=== PATIENT | male | born 1950 | race African-American/Black ===

== ENCOUNTER 2018-03-13 20:04 | Inpatient (IN) | payer MEDICARE, OTHER ==
[~2018-03-13] VITALS: Ht 167.6 cm; Wt 68.9 kg
[~2018-03-13 20:04] MED LIST: ALBUTEROL SULF8.5 GM INH; AZITHROMYCIN250 MG PO
[2018-03-13 20:11] VITALS: BP 152/69
--- NOTE | 2018-03-13 20:27 | Emergency Room Report ---
History of Present Illness General Chief Complaint: Male Urogenital Problems Source: Patient (Erick Mitchell DO) Present Illness HPI Patient presents with reports of blood in his urine Patient reports that he woke up this afternoon after using the restroom he saw bright red blood also small amounts of clots with urination and now he has not been able to urinate over the past 4-5 hours he feels a pressure to urinate Denies any problem with this before denies any recent trauma denies any fevers or chills denies any chest pain or shortness of breath He was started to have some increased fullness sensation in the bladder area (Erick Mitchell DO) Allergies: Coded Allergies: No Known Allergies (Unverified , 03/13/18) Patient History Past Medical History: see triage record Pertinent Family History: none Reviewed Nursing Documentation: PMH: Agreed; PSxH: Agreed (MelvaeddieErick BROWNING) Nursing Documentation-PMH Past Medical History: No Stated History (Erick Mitchell DO) Review of Systems All Other Systems: negative except mentioned in HPI (MelvaErick watts DO) Physical Exam Vital Signs Date Time Temp Pulse Resp B/P (MAP) Pulse Ox O2 Delivery O2 Flow Rate FiO2 03/13/18 20:06 98.4 72 14 152/69 99 Room Air 98.4 Sp02 EP Interpretation: reviewed, normal General Appearance: well appearing, no apparent distress Head: normocephalic, atraumatic Eyes: bilateral eye PERRL, bilateral eye EOMI ENT: hearing grossly normal, normal pharynx, TMs + canals normal, uvula midline Neck: full range of motion, supple, no meningismus, no bony tend Respiratory: lungs clear, normal breath sounds, no rhonchi, no respiratory distress, no retraction, no accessory muscle use Cardiovascular #1: normal peripheral pulses, regular rate, rhythm, no edema, no gallop, no JVD, no murmur Gastrointestinal: normal bowel sounds, non tender, soft, no mass, no organomegaly, non-distended, no guarding, no hernia, no pulsatile mass, no rebound Genitourinary: no CVA tenderness Musculoskeletal: normal inspection Neurologic: oriented x3, responsive, instrument maker III-XII nml as tested, motor strength/ tone normal, sensory intact Psychiatric: mood/affect normal Skin: normal color, no rash, warm/dry, palpation normal Lymphatic: normal inspection, no adenopathy (Erick Mitchell DO) Medical Decision Making Diagnostic Impression: Primary Impression: Gross hematuria Additional Impressions: Urinary retention Lesion of right sycuan ureter Hydronephrosis of right kidney UTI (urinary tract infection) Qualified Codes: N30.01 - Acute cystitis with hematuria ER Course This patient was signed out to me. He presents with chief complaint of urinary retention and gross hematuria. A 3-way Neal was placed. Initially there was a hard time irrigating it. Small clot came out and I readjusted the Neal and now is flowing fine. No gross blood. CT scan show a lesion with hemorrhage in the right distal ureter. This has severe right [place] ureteral nephrosis. We' ll admit for further workup. I contacted Dr. Lerma and Breann for admission. Lab Results Impression labs unremarkable (LUKASZ VARELA M.D.) CT/MRI/US Diagnostic Results CT/MRI/US Diagnostic Results : Imaging Test Ordered: CT abdomen and pelvis Impression Read by radiologist. Lesion plus/minus hemorrhage in the right distal ureter with severe hydronephrosis. Superimposed infection should be assessed and probable clinical setting. (LUKASZ VARELA M.D.) Last Vital Signs Date Time Temp Pulse Resp B/P (MAP) Pulse Ox O2 Delivery O2 Flow Rate FiO2 03/13/18 20:11 98.4 14 152/69 99 Room Air 98.4 03/13/18 20:06 72 (Erick Mitchell DO) Status: improved (LUKASZ VARELA M.D.) Disposition: ADMITTED INPATIENT Condition: Serious Scripts No Active Prescriptions or Reported Meds Erick Mitchell DO Mar 13, 2018 20:27 LUKASZ VARELA M.D. Mar 13, 2018 22:12
[2018-03-13 20:55] LABS: BASOPHILS % (AUTO) 0.7 % (0.0-2.0); EOSINOPHILS % (AUTO) 1.6 % (0.0-3.0); HEMATOCRIT 42.9 % (42.0-52.0); HEMOGLOBIN 14.6 G/DL (14.2-18.0); LYMPHOCYTES % (AUTO) 30.4 % (20.0-45.0); MEAN CORPUSCULAR VOLUME 85 FL (80-99); MONOCYTES % (AUTO) 2.1 % (1.0-10.0); NEUTROPHILS % (AUTO) 65.2 % (45.0-75.0); PLATELET COUNT 193 K/UL (150-450); RED BLOOD COUNT 5.05 M/UL (4.70-6.10); RED CELL DISTRIBUTION WIDTH 11.6 % (11.6-14.8); WHITE BLOOD COUNT 4.5 K/UL (4.8-10.8)
[2018-03-13 21:26] LABS: ANION GAP 7 mmol/L (5-15); BLOOD UREA NITROGEN 10 mg/dL (7-18); CALCIUM 9.5 MG/DL (8.5-10.1); CARBON DIOXIDE 29 MMOL/L (21-32); CHLORIDE 105 MMOL/L (98-107); CREATININE 1.3 MG/DL (0.55-1.30); POTASSIUM 4.3 MMOL/L (3.5-5.1); SODIUM 141 MMOL/L (136-145)
[2018-03-13 21:31] LABS: ALANINE AMINOTRANSFERASE 19 U/L (12-78); ALBUMIN 3.4 G/DL (3.4-5.0); ALBUMIN/GLOBULIN RATIO 0.8 (1.0-2.7); ALKALINE PHOSPHATASE 97 U/L (46-116); ASPARTATE AMINO TRANSFERASE 13 U/L (15-37); BILIRUBIN,TOTAL 0.3 MG/DL (0.2-1.0)
[2018-03-13] MEDS ORDERED: Albuterol/Ipratropium 3ml neb HHN PRN (22:15)
[2018-03-13] MEDS ORDERED: Miralax 17gm pkt ORAL PRN (22:15)
[2018-03-13] MEDS ORDERED: cefTRIAXone 1 GM in NS 55 ML IVPB ONE (22:15)
[2018-03-13] MEDS ORDERED: Morphine Sulfate 2mg/ml Inj IVP PRN (22:15)
[2018-03-13 22:30] LABS: APPEARANCE,URINE CLEAR; BILIRUBIN, URINE NEGATIVE (NEGATIVE); COLOR,URINE PALE YELLOW; GLUCOSE, URINE (UA) NEGATIVE (NEGATIVE); KETONES,URINE NEGATIVE (NEGATIVE); LEUKOCYTE ESTERASE ,URINE 3+ (NEGATIVE); NITRITE,URINE POSITIVE (NEGATIVE); PH,URINE 7 (4.5-8.0); PROTEIN,URINE NEGATIVE (NEGATIVE); UROBILINOGEN,URINE NORMAL MG/DL (0.0-1.0)
[2018-03-14] VITALS: BP 145/69
[2018-03-14] MEDS ORDERED: Vancomycin 1 GM in D5W 275 ML IVPB SCH (00:30)
[2018-03-14 04:00] VITALS: BP 127/60
[2018-03-14 06:45] LABS: HEMATOCRIT 41.9 % (42.0-52.0); MEAN CORPUSCULAR VOLUME 85 FL (80-99); PLATELET COUNT 166 K/UL (150-450); RED CELL DISTRIBUTION WIDTH 11.2 % (11.6-14.8); WHITE BLOOD COUNT 12.2 K/UL (4.8-10.8)
[2018-03-14 07:01] LABS: ALANINE AMINOTRANSFERASE 17 U/L (12-78); ALBUMIN 2.9 G/DL (3.4-5.0); ALBUMIN/GLOBULIN RATIO 0.7 (1.0-2.7); ALKALINE PHOSPHATASE 78 U/L (46-116); ANION GAP 9 mmol/L (5-15); ASPARTATE AMINO TRANSFERASE 15 U/L (15-37); BILIRUBIN,TOTAL 0.5 MG/DL (0.2-1.0); BLOOD UREA NITROGEN 10 mg/dL (7-18); CALCIUM 8.5 MG/DL (8.5-10.1); CARBON DIOXIDE 25 MMOL/L (21-32); CHLORIDE 106 MMOL/L (98-107); CREATININE 1.3 MG/DL (0.55-1.30); POTASSIUM 3.8 MMOL/L (3.5-5.1); SODIUM 140 MMOL/L (136-145)
--- NOTE | 2018-03-14 07:38 | General Progress Note ---
Progress Note Progress Note patient seen and examined full consult dictated Cindy Jules MD Mar 14, 2018 07:38
[2018-03-14 08:00] VITALS: BP 125/63
--- NOTE | 2018-03-14 09:44 | Diagnostic Imaging Report ---
Indication: Hematuria. Technique: Noncontrast CT of the abdomen and pelvis utilizing automated exposure control. Axial, sagittal and coronal reformats presented. CT dose: Total DLP 522.17 mGycm; CTDI vol 10.99 mGy Comparison: None Findings: Please note that evaluation of the abdominal and pelvic viscera and vascular structures is limited without the use of intravenous and oral contrast. Within these limitations the following observations are made: Dependent atelectasis noted in the lung bases. Heart size appears within normal limits. Noncontrast evaluation of the liver, gallbladder, spleen, adrenal glands and pancreas grossly unremarkable. There is severe right-sided hydronephrosis and moderate dilatation of the right ureter. There is focal increased dilatation with high attenuation components in the distal right ureter with the ureter measuring up to 1.5 x 1.5 cm (axial images #100). There is a punctate nonobstructing left renal calculus. No hydroureteronephrosis on the left. Prostate is enlarged and heterogeneous and contains central calcifications. 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 There is no free intraperitoneal air or fluid. No evidence of bowel obstruction. Abdominal aorta is normal in caliber. There are mild atherosclerotic calcifications. Some small retroperitoneal lymph nodes are identified, nonspecific. There are degenerative changes of the bilateral hips and spine. No acute osseous abnormality is appreciated. IMPRESSION: Limited exam without intravenous and oral contrast. Within these limitations: * Lesion/focal thickening in the right distal ureter with associated high attenuation components which may represent hemorrhagic products with resultant severe right-sided hydronephrosis and moderate right-sided ureteral dilatation. A ureteral malignancy cannot be excluded. Superimposed infection can also not be excluded. Correlation with urinalysis and urine cytology recommended. Urology consult recommended. * Punctate nonobstructing left renal stone. No evidence of obstructive uropathy on the left. * Large heterogeneous prostate. Dilatation of a segment of the prostatic urethra. This corresponds with the statrad preliminary report. The CT scanner at [facility] is accredited by the [employer] and the scans are performed using protocols designed to limit radiation exposure to as low as reasonably achievable to attain images of sufficient resolution adequate for diagnostic evaluation.
[2018-03-14] MEDS: Cefepime HCl 2 GM in D5W 110 ML IV SCH ×2 (09:49→21:21)
[2018-03-14] MEDS ORDERED: Tubing IV Secondary IV ONE (10:14)
[2018-03-14] MEDS ORDERED: NS 500ML ONE (10:14)
[2018-03-14 12:00] VITALS: BP 113/93
--- NOTE | 2018-03-14 12:15 | Consultation ---
DATE OF CONSULTATION: 03/14/2018 NEPHROLOGY CONSULTATION CONSULTING PHYSICIAN: Cindy Jules M.D. REFERRING PHYSICIAN: Mich Lerma D.O. REASON FOR CONSULTATION: Hematuria. HISTORY OF PRESENT ILLNESS: The patient is a pleasant male with basically no significant past medical history. He presented to the emergency room after he found to have blood in his urine and amount of the blood increased to the point that the patient had difficulty urinating, had some blood clots. He came to emergency room, a three-way Neal catheter was placed and the patient was placed on continuous bladder wash. While the patient was in the hospital, I was called for hematuria and management of he electrolytes and kidney function. PAST MEDICAL HISTORY: None. SOCIAL HISTORY: He has a long history of smoking, he continued to smoke. There is no history of alcohol or drug use. FAMILY HISTORY: Negative for any history of premature heart disease in the first-degree relatives. REVIEW OF SYSTEMS: GENERAL: He denies any weight loss, weight gain, fevers, chills, or night sweats. HEAD AND NECK: He denies any dysphagia, odynophagia, blurry vision, headache, or neck stiffness. PULMONARY: Denies any shortness of breath, cough, or sputum. CARDIOVASCULAR: Denies any chest pain or palpitations. GASTROINTESTINAL: Denies any nausea, vomiting, diarrhea, hematemesis, or hematochezia. GENITOURINARY: Complained of dysuria, frequency, and hematuria. MUSCULOSKELETAL: Denies any weakness or numbness. PHYSICAL EXAMINATION: VITAL SIGNS: The patient has a temperature of 98, blood pressure is 127/60 although the patient has some elevated blood pressure in the ER 152/69, also the patient now has a temperature of 99.7. HEAD AND NECK: No JVP. No LAD. No thyromegaly. Extraocular movement intact. Pupils are reactive to light and accommodation. LUNGS: Clear to auscultation. CARDIAC: Regular rate and rhythm. S1 and S2. No murmur. No rub. ABDOMEN: Soft, nontender, and nondistended. EXTREMITIES: No edema. No clubbing. No cyanosis. NEUROLOGIC: Cranial nerves II through XII within normal limits. Upper and lower extremities are grossly intact. LABORATORY AND DIAGNOSTIC DATA: The patient has WBC count of 12.2, hemoglobin of 14, hematocrit of 41, and platelet count of 166. Chemistry revealed sodium of 140, potassium 3.8, chloride 106, bicarbonate 25, BUN of 10, creatinine of 1.3, and calcium 8.5. AST of 15, ALT of 17. Total protein of 6.8. Urine revealed specific gravity of 1.005, blood 5+, nitrite positive, leukocyte esterase 3+, rbc 5 to 10, wbc of 2 to 4. The patient had CT of the abdomen, which revealed right distal ureteral severe hydronephrosis. ASSESSMENT: 1. Hematuria. 2. Urinary tract infection. 3. Right-sided hydronephrosis. PLAN: Plan for the patient to check the urine protein creatinine ratio to calculate the proteinuria. IV hydration. Continue with three-way Neal bladder irrigation and IV antibiotics for urinary tract infection. At the end, I would like to thank, Dr. Mich Lerma, for allowing me to participate in the care of this patient. Cindy Jules M.D. DR: RUBY JOB#: [id number] CC:
--- NOTE | 2018-03-14 14:37 | Consultation ---
History of Present Illness General Date patient seen: Mar 14, 2018 Chief Complaint: Male Urogenital Problems Present Illness HPI 67 year old male with hx of asthma presented to ER with reports of blood in his urine Patient reports that he woke up this afternoon after using the restroom he saw bright red blood also small amounts of clots with urination and now he has not been able to urinate over the past 4-5 hours he feels a pressure to urinate No fever, chills reported. Allergies: Coded Allergies: No Known Allergies (Unverified , 09/20/12) Medication History Scheduled Albuterol Sulfate* (Albuterol Sulfate Mdi*), 2 PUFF INH Q4H Azithromycin* (Zithromax*), 250 MG PO DAILY Patient History Healthcare decision maker Resuscitation status Full Code Advanced Directive on File Past Medical/Surgical History Past Medical/Surgical History: (1) History of asthma Review of Systems All Other Systems: negative except mentioned in HPI Physical Exam General Appearance: WD/WN, no apparent distress Lines, tubes and drains: peripheral HEENT: normocephalic, atraumatic Neck: non-tender, normal alignment Respiratory/Chest: chest wall non-tender, lungs clear Breasts: no masses Cardiovascular/Chest: normal peripheral pulses Abdomen: normal bowel sounds, non tender Genitourinary/Rectal: normal genital exam Extremities: normal range of motion, non-tender Skin Exam: normal pigmentation Neurologic: medical practitioners II-XII grossly normal Last 24 Hour Vital Signs Date Time Temp Pulse Resp B/P (MAP) Pulse Ox O2 Delivery O2 Flow Rate FiO2 03/14/18 12:00 96.7 94 19 113/93 (100) 97 96.7 03/14/18 09:35 Room Air 03/14/18 08:00 98.8 95 20 125/63 (83) 98.8 03/14/18 08:00 98 03/14/18 04:00 99.7 96 19 127/60 (82) 97 99.7 03/14/18 00:00 97.9 84 19 145/69 (94) 100 97.9 03/13/18 23:38 Room Air 03/13/18 23:01 98.4 14 137/72 99 Room Air 98.4 03/13/18 20:11 98.4 14 152/69 99 Room Air 98.4 03/13/18 20:06 98.4 72 14 152/69 99 Room Air 98.4 Intake and Output 03/13/18 03/14/18 19:00 07:00 Intake Total 275.0 ml Output Total 5660 ml Balance -5385.0 ml Intake Oral 0 ml IV Total 275.0 ml Output Urine Total 5660 ml Laboratory Tests Test 03/13/18 20:22 03/13/18 22:00 03/14/18 05:25 White Blood Count 4.5 K/UL (4.8-10.8) L 12.2 K/UL (4.8-10.8) #H Red Blood Count 5.05 M/UL (4.70-6.10) 4.90 M/UL (4.70-6.10) Hemoglobin 14.6 G/DL (14.2-18.0) 14.0 G/DL (14.2-18.0) L Hematocrit 42.9 % (42.0-52.0) 41.9 % (42.0-52.0) L Mean Corpuscular Volume 85 FL (80-99) 85 FL (80-99) Mean Corpuscular Hemoglobin 28.8 PG (27.0-31.0) 28.5 PG (27.0-31.0) Mean Corpuscular Hemoglobin Concent 34.0 G/DL (32.0-36.0) 33.4 G/DL (32.0-36.0) Red Cell Distribution Width 11.6 % (11.6-14.8) 11.2 % (11.6-14.8) L Platelet Count 193 K/UL (150-450) 166 K/UL (150-450) Mean Platelet Volume 6.4 FL (6.5-10.1) L 6.8 FL (6.5-10.1) Neutrophils (%) (Auto) 65.2 % (45.0-75.0) % (45.0-75.0) Lymphocytes (%) (Auto) 30.4 % (20.0-45.0) % (20.0-45.0) Monocytes (%) (Auto) 2.1 % (1.0-10.0) % (1.0-10.0) Eosinophils (%) (Auto) 1.6 % (0.0-3.0) % (0.0-3.0) Basophils (%) (Auto) 0.7 % (0.0-2.0) % (0.0-2.0) Sodium Level 141 MMOL/L (136-145) 140 MMOL/L (136-145) Potassium Level 4.3 MMOL/L (3.5-5.1) 3.8 MMOL/L (3.5-5.1) Chloride Level 105 MMOL/L (98-107) 106 MMOL/L (98-107) Carbon Dioxide Level 29 MMOL/L (21-32) 25 MMOL/L (21-32) Anion Gap 7 mmol/L (5-15) 9 mmol/L (5-15) Blood Urea Nitrogen 10 mg/dL (7-18) 10 mg/dL (7-18) Creatinine 1.3 MG/DL (0.55-1.30) 1.3 MG/DL (0.55-1.30) Estimat Glomerular Filtration Rate > 60 mL/min (>60) > 60 mL/min (>60) Glucose Level 103 MG/DL (74-106) 114 MG/DL (74-106) H Calcium Level 9.5 MG/DL (8.5-10.1) 8.5 MG/DL (8.5-10.1) Total Bilirubin 0.3 MG/DL (0.2-1.0) 0.5 MG/DL (0.2-1.0) Aspartate Amino Transf (AST/SGOT) 13 U/L (15-37) L 15 U/L (15-37) Alanine Aminotransferase (ALT/SGPT) 19 U/L (12-78) 17 U/L (12-78) Alkaline Phosphatase 97 U/L (46-116) 78 U/L (46-116) Total Protein 7.8 G/DL (6.4-8.2) 6.8 G/DL (6.4-8.2) Albumin 3.4 G/DL (3.4-5.0) 2.9 G/DL (3.4-5.0) L Globulin 4.4 g/dL 3.9 g/dL Albumin/Globulin Ratio 0.8 (1.0-2.7) L 0.7 (1.0-2.7) L Lipase 166 U/L (73-393) Urine Color Pale yellow Urine Appearance Clear Urine pH 7 (4.5-8.0) Urine Specific [place] 1.005 (1.005-1.035) Urine Protein Negative (NEGATIVE) Urine Glucose (UA) Negative (NEGATIVE) Urine Ketones Negative (NEGATIVE) Urine Occult Blood 5+ (NEGATIVE) H Urine Nitrite Positive (NEGATIVE) H Urine Bilirubin Negative (NEGATIVE) Urine Urobilinogen Normal MG/DL (0.0-1.0) Urine Leukocyte Esterase 3+ (NEGATIVE) H Urine RBC 5-10 /HPF (0 - 0) H Urine WBC 2-4 /HPF (0 - 0) Urine Squamous Epithelial Cells None /LPF (NONE/OCC) Urine Bacteria Few /HPF (NONE) Differential Total Cells Counted 100 Neutrophils % (Manual) 97 % (45-75) H Lymphocytes % (Manual) 1 % (20-45) L Monocytes % (Manual) 2 % (1-10) Eosinophils % (Manual) 0 % (0-3) Basophils % (Manual) 0 % (0-2) Band Neutrophils 0 % (0-8) Platelet Estimate Adequate Platelet Morphology Normal Red Blood Cell Morphology Normal Height (Feet): 5 Height (Inches): 6.00 Weight (Pounds): 152 Medications Current Medications Medications (Trade) Dose Ordered Sig/Avis Route PRN Reason Start Time Stop Time Status Last Admin Dose Admin Acetaminophen (Tylenol) 650 mg Q4H PRN ORAL fever 03/13/18 22:15 04/12/18 22:14 Albuterol/ Ipratropium (Albuterol/ Ipratropium) 3 ml Q4H PRN HHN Shortness of Breath 03/13/18 22:15 03/18/18 22:14 Cefepime HCl 2 gm/ Dextrose 110 ml @ 220 mls/hr EVERY 12 HOURS IV 03/14/18 09:00 03/21/18 08:59 03/14/18 09:49 Morphine Sulfate (Morphine Sulfate) 2 mg EVERY 4 HOURS PRN IVP Moderate Pain (Pain Scale 4-6) 03/13/18 22:15 03/20/18 22:14 Ondansetron HCl (Zofran) 4 mg Q6H PRN IVP Nausea & Vomiting 03/13/18 22:15 04/12/18 22:14 Phenazopyridine HCl (Pyridium) 100 mg DAILY PRN ORAL dysuria 03/13/18 22:15 04/12/18 22:14 Polyethylene Glycol (Miralax) 17 gm DAILYPRN PRN ORAL Constipation 03/13/18 22:15 04/12/18 22:14 Temazepam (Restoril) 15 mg HSPRN PRN ORAL Insomnia 03/13/18 22:15 03/20/18 22:14 Vancomycin HCl 1 gm/Dextrose 275 ml @ 183.3 mls/ hr Q24H IVPB 03/14/18 00:30 03/19/18 00:29 03/14/18 00:38 Assessment/Plan Problem List: (1) Gross hematuria ICD Codes: R31.0 - Gross hematuria SNOMED: 953622379 (2) UTI (urinary tract infection) ICD Codes: N39.0 - Urinary tract infection, site not specified SNOMED: 29387662 Qualifiers: (3) History of asthma ICD Codes: Z87.09 - Personal history of other diseases of the respiratory system SNOMED: 069201555 Assessment/Plan iv fluids Urology evaluation check H/H prbc prn dvt prophylaxis. Matilde Crain MD Mar 14, 2018 14:37
[2018-03-14 16:00] VITALS: BP 115/70
--- NOTE | 2018-03-14 19:45 | Consultation ---
History of Present Illness General Date patient seen: Mar 14, 2018 Chief Complaint: Male Urogenital Problems Present Illness HPI 67 y/o M with hx of tobacco abuse presents to ED on 03/13 with gross hematuria/ clots, urinary difficulty. In ED, benson placed Dnies trauma, f/c, CP, SOB. Allergies: Coded Allergies: No Known Allergies (Unverified , 09/20/12) Medication History Scheduled Albuterol Sulfate* (Albuterol Sulfate Mdi*), 2 PUFF INH Q4H Azithromycin* (Zithromax*), 250 MG PO DAILY Patient History Healthcare decision maker Resuscitation status Full Code Advanced Directive on File Patient History Narrative Pmhx: as above Shx: He has a long history of smoking, he continued to smoke. There is no history of alcohol or drug use. Fhx: non contributory Review of Systems All Other Systems: negative except mentioned in HPI Physical Exam Physical Exam Narrative HEAD AND NECK: No JVP. No LAD. No thyromegaly. Extraocular movement intact. Pupils are reactive to light and accommodation. LUNGS: Clear to auscultation. CARDIAC: Regular rate and rhythm. S1 and S2. No murmur. No rub. ABDOMEN: Soft, nontender, and nondistended. EXTREMITIES: No edema. No clubbing. No cyanosis. NEUROLOGIC: Cranial nerves II through XII within normal limits. Upper and lower extremities are grossly intact. Last 24 Hour Vital Signs Date Time Temp Pulse Resp B/P (MAP) Pulse Ox O2 Delivery O2 Flow Rate FiO2 03/14/18 17:06 98 Room Air 21 03/14/18 17:04 84 20 Room Air 21 03/14/18 16:00 97.0 90 20 115/70 (85) 98 97.0 03/14/18 12:00 96.7 94 19 113/93 (100) 97 96.7 03/14/18 09:35 Room Air 03/14/18 08:00 98.8 95 20 125/63 (83) 98.8 03/14/18 08:00 98 03/14/18 04:00 99.7 96 19 127/60 (82) 97 99.7 03/14/18 00:00 97.9 84 19 145/69 (94) 100 97.9 03/13/18 23:38 Room Air 03/13/18 23:01 98.4 14 137/72 99 Room Air 98.4 03/13/18 20:11 98.4 14 152/69 99 Room Air 98.4 03/13/18 20:06 98.4 72 14 152/69 99 Room Air 98.4 Intake and Output 03/13/18 03/14/18 19:00 07:00 Intake Total 275.0 ml Output Total 5660 ml Balance -5385.0 ml Intake Oral 0 ml IV Total 275.0 ml Output Urine Total 5660 ml Laboratory Tests Test 03/13/18 20:22 03/13/18 22:00 03/14/18 05:25 White Blood Count 4.5 K/UL (4.8-10.8) L 12.2 K/UL (4.8-10.8) #H Red Blood Count 5.05 M/UL (4.70-6.10) 4.90 M/UL (4.70-6.10) Hemoglobin 14.6 G/DL (14.2-18.0) 14.0 G/DL (14.2-18.0) L Hematocrit 42.9 % (42.0-52.0) 41.9 % (42.0-52.0) L Mean Corpuscular Volume 85 FL (80-99) 85 FL (80-99) Mean Corpuscular Hemoglobin 28.8 PG (27.0-31.0) 28.5 PG (27.0-31.0) Mean Corpuscular Hemoglobin Concent 34.0 G/DL (32.0-36.0) 33.4 G/DL (32.0-36.0) Red Cell Distribution Width 11.6 % (11.6-14.8) 11.2 % (11.6-14.8) L Platelet Count 193 K/UL (150-450) 166 K/UL (150-450) Mean Platelet Volume 6.4 FL (6.5-10.1) L 6.8 FL (6.5-10.1) Neutrophils (%) (Auto) 65.2 % (45.0-75.0) % (45.0-75.0) Lymphocytes (%) (Auto) 30.4 % (20.0-45.0) % (20.0-45.0) Monocytes (%) (Auto) 2.1 % (1.0-10.0) % (1.0-10.0) Eosinophils (%) (Auto) 1.6 % (0.0-3.0) % (0.0-3.0) Basophils (%) (Auto) 0.7 % (0.0-2.0) % (0.0-2.0) Sodium Level 141 MMOL/L (136-145) 140 MMOL/L (136-145) Potassium Level 4.3 MMOL/L (3.5-5.1) 3.8 MMOL/L (3.5-5.1) Chloride Level 105 MMOL/L (98-107) 106 MMOL/L (98-107) Carbon Dioxide Level 29 MMOL/L (21-32) 25 MMOL/L (21-32) Anion Gap 7 mmol/L (5-15) 9 mmol/L (5-15) Blood Urea Nitrogen 10 mg/dL (7-18) 10 mg/dL (7-18) Creatinine 1.3 MG/DL (0.55-1.30) 1.3 MG/DL (0.55-1.30) Estimat Glomerular Filtration Rate > 60 mL/min (>60) > 60 mL/min (>60) Glucose Level 103 MG/DL (74-106) 114 MG/DL (74-106) H Calcium Level 9.5 MG/DL (8.5-10.1) 8.5 MG/DL (8.5-10.1) Total Bilirubin 0.3 MG/DL (0.2-1.0) 0.5 MG/DL (0.2-1.0) Aspartate Amino Transf (AST/SGOT) 13 U/L (15-37) L 15 U/L (15-37) Alanine Aminotransferase (ALT/SGPT) 19 U/L (12-78) 17 U/L (12-78) Alkaline Phosphatase 97 U/L (46-116) 78 U/L (46-116) Total Protein 7.8 G/DL (6.4-8.2) 6.8 G/DL (6.4-8.2) Albumin 3.4 G/DL (3.4-5.0) 2.9 G/DL (3.4-5.0) L Globulin 4.4 g/dL 3.9 g/dL Albumin/Globulin Ratio 0.8 (1.0-2.7) L 0.7 (1.0-2.7) L Lipase 166 U/L (73-393) Urine Color Pale yellow Urine Appearance Clear Urine pH 7 (4.5-8.0) Urine Specific [place] 1.005 (1.005-1.035) Urine Protein Negative (NEGATIVE) Urine Glucose (UA) Negative (NEGATIVE) Urine Ketones Negative (NEGATIVE) Urine Occult Blood 5+ (NEGATIVE) H Urine Nitrite Positive (NEGATIVE) H Urine Bilirubin Negative (NEGATIVE) Urine Urobilinogen Normal MG/DL (0.0-1.0) Urine Leukocyte Esterase 3+ (NEGATIVE) H Urine RBC 5-10 /HPF (0 - 0) H Urine WBC 2-4 /HPF (0 - 0) Urine Squamous Epithelial Cells None /LPF (NONE/OCC) Urine Bacteria Few /HPF (NONE) Differential Total Cells Counted 100 Neutrophils % (Manual) 97 % (45-75) H Lymphocytes % (Manual) 1 % (20-45) L Monocytes % (Manual) 2 % (1-10) Eosinophils % (Manual) 0 % (0-3) Basophils % (Manual) 0 % (0-2) Band Neutrophils 0 % (0-8) Platelet Estimate Adequate Platelet Morphology Normal Red Blood Cell Morphology Normal Height (Feet): 5 Height (Inches): 6.00 Weight (Pounds): 152 Medications Current Medications Medications (Trade) Dose Ordered Sig/Avis Route PRN Reason Start Time Stop Time Status Last Admin Dose Admin Acetaminophen (Tylenol) 650 mg Q4H PRN ORAL fever 03/13/18 22:15 04/12/18 22:14 Albuterol/ Ipratropium (Albuterol/ Ipratropium) 3 ml Q4H PRN HHN Shortness of Breath 03/13/18 22:15 03/18/18 22:14 Cefepime HCl 2 gm/ Dextrose 110 ml @ 220 mls/hr EVERY 12 HOURS IV 03/14/18 09:00 03/21/18 08:59 03/14/18 09:49 Morphine Sulfate (Morphine Sulfate) 2 mg EVERY 4 HOURS PRN IVP Moderate Pain (Pain Scale 4-6) 03/13/18 22:15 03/20/18 22:14 Ondansetron HCl (Zofran) 4 mg Q6H PRN IVP Nausea & Vomiting 03/13/18 22:15 04/12/18 22:14 Phenazopyridine HCl (Pyridium) 100 mg DAILY PRN ORAL dysuria 03/13/18 22:15 04/12/18 22:14 Polyethylene Glycol (Miralax) 17 gm DAILYPRN PRN ORAL Constipation 03/13/18 22:15 04/12/18 22:14 Temazepam (Restoril) 15 mg HSPRN PRN ORAL Insomnia 03/13/18 22:15 03/20/18 22:14 Vancomycin HCl (Vanco rx to dose) 1 ea DAILY PRN MISC PER RX PROTOCOL 03/14/18 17:15 04/13/18 17:14 Vancomycin HCl 1 gm/Dextrose 275 ml @ 183.3 mls/ hr Q24H IVPB 03/14/18 00:30 03/19/18 00:29 03/14/18 00:38 Assessment/Plan Assessment/Plan Abx: IV Vanco 03/14- Cefepime 03/14- Ceftriaxone x1 03/13 Assessment: Hematuria Severe R side hydronephrosis/hydroureter- r/o malignancy -r/o UTI -CT abd/p: Limited exam without intravenous and oral contrast. Within these limitations: Lesion/focal thickening in the right distal ureter with associated high attenuation components which may represent hemorrhagic products with resultant severe right-sided hydronephrosis and moderate right-sided ureteral dilatation. A ureteral malignancy cannot be excluded. Superimposed infection can also not be excluded. Correlation with urinalysis and urine cytology recommended. Urology consult recommended.* Punctate nonobstructing left renal stone. No evidence of obstructive uropathy on the left.* Large heterogeneous prostate. Dilatation of a segment of the prostatic urethra. Mild leukocytosis -afebrile -u/a wbc 2-4, nit +, leuk +3 tobacco abuse Plan: -d/c IV Vancomycin -Continue empiric Cefepime penidng urine culture -repeat u/a -urine cytology -Uro consult -f/u cx -Monitor CBC/CMP, temperatures Thank you for this consultation. Will continue to follow along with you. Discussed with Adelina Calixto M.D. Mar 14, 2018 19:45
[2018-03-14 20:00] VITALS: BP 130/62
--- NOTE | 2018-03-14 23:15 | History and Physical Report ---
DATE OF ADMISSION: 03/13/2018 TIME SEEN: At 2:10 p.m. CONSULTANTS: 1. Luis Alberto Ortez M.D. 2. Cindy Jules M.D. 3. Matilde Crain M.D. CHIEF COMPLAINT: Hematuria, hydronephrosis, and urethral hemorrhage. BRIEF HISTORY: This is a 67-year-old male, who lives at home, presents with bloody urine for two days, getting worse, came to [place], diagnosed with hydronephrosis and urethral hemorrhage, and admitted to medical floor for further treatment. Currently calm in bed, feeling little bit better. No complaint otherwise. PAST MEDICAL HISTORY: Nothing. PAST SURGICAL HISTORY: Nothing. MEDICATIONS: Cefepime, vancomycin, albuterol, Tylenol, morphine, , MiraLAX, Zofran, Restoril, . ALLERGIES: Denies. SOCIAL HISTORY: Positive smoking. No alcohol. No intravenous drug abuse. FAMILY HISTORY: Noncontributory. REVIEW OF SYSTEMS: No chest pain. No shortness of breath. No nausea, vomiting, or diarrhea. PHYSICAL EXAMINATION: GENERAL: Calm in bed, oriented x3, no acute distress. VITAL SIGNS: Temperature 96 degrees, pulse 94, respirations 19, and blood pressure 113/93. CARDIOVASCULAR: No murmur. LUNGS: Distant and clear. ABDOMEN: Bowel sound positive. Nontender. Nondistended. EXTREMITIES: No cyanosis, clubbing, or edema. NEUROLOGIC: The patient moves all extremities, slightly weak. LABORATORY AND DIAGNOSTIC DATA: Labs at this time show initial white count 4.5, now 12.2; hemoglobin and hematocrit 14/41, and platelets 166. BMP shows glucose 114. Albumin 2.9, otherwise normal. Urinalysis shows 5+ occult blood, positive nitrites, and 3+ leukocyte esterase. ASSESSMENT: 1. Hematuria. 2. Urinary tract infection. 3. Hydronephrosis. 4. Urethral hemorrhage. PLAN: 1. Continue previous medications. 2. IV fluids. 3. Pain control. 4. Antibiotics per Infectious Disease. 5. Dietary evaluation. 6. CBC and BMP in the morning. 7. Dr. Ortez, Dr. Jules, Dr. Crain, and Dr Celeste to consult. Mich Lerma D.O. DR: CATHY JOB#: [id number] CC:
[2018-03-15] VITALS: BP 135/58
[2018-03-15 04:00] VITALS: BP 129/64
[2018-03-15 06:09] LABS: BILIRUBIN, URINE NEGATIVE (NEGATIVE); COLOR,URINE PALE YELLOW; GLUCOSE, URINE (UA) NEGATIVE (NEGATIVE); KETONES,URINE NEGATIVE (NEGATIVE); LEUKOCYTE ESTERASE ,URINE 3+ (NEGATIVE); NITRITE,URINE NEGATIVE (NEGATIVE); PH,URINE 6 (4.5-8.0); PROTEIN,URINE 1+ (NEGATIVE); UROBILINOGEN,URINE NORMAL MG/DL (0.0-1.0)
[2018-03-15 06:31] LABS: APPEARANCE,URINE SLIGHTLY CLOUDY
[2018-03-15 07:41] LABS: BASOPHILS % (AUTO) 0.8 % (0.0-2.0); EOSINOPHILS % (AUTO) 0.4 % (0.0-3.0); HEMATOCRIT 38.3 % (42.0-52.0); LYMPHOCYTES % (AUTO) 12.4 % (20.0-45.0); MEAN CORPUSCULAR VOLUME 86 FL (80-99); MONOCYTES % (AUTO) 6.6 % (1.0-10.0); NEUTROPHILS % (AUTO) 79.8 % (45.0-75.0); PLATELET COUNT 142 K/UL (150-450); RED BLOOD COUNT 4.46 M/UL (4.70-6.10); RED CELL DISTRIBUTION WIDTH 11.5 % (11.6-14.8); WHITE BLOOD COUNT 8.2 K/UL (4.8-10.8)
--- NOTE | 2018-03-15 07:41 | Nephrology Progress Note ---
Assessment/Plan Assessment 1. Hematuria. 2. Urinary tract infection. 3. Right-sided hydronephrosis Plan plan to continue IVF monitoring renal function avoid NSAID replace electrolyte as need if fallow up with urology rec Subjective Constitutional: Reports: no symptoms HEENT: Reports: no symptoms Genitourinary: Reports: hematuria Neurologic/Psychiatric: Reports: no symptoms Objective Objective Last 24 Hour Vital Signs Date Time Temp Pulse Resp B/P (MAP) Pulse Ox O2 Delivery O2 Flow Rate FiO2 03/15/18 04:00 98.2 70 18 129/64 (85) 97 98.2 03/15/18 00:00 97.7 65 18 135/58 (83) 100 97.7 03/14/18 21:30 Room Air 03/14/18 20:00 97.9 75 19 130/62 (84) 98 97.9 03/14/18 20:00 Room Air 03/14/18 17:06 98 Room Air 21 03/14/18 17:04 84 20 Room Air 21 03/14/18 16:00 97.0 90 20 115/70 (85) 98 97.0 03/14/18 12:00 96.7 94 19 113/93 (100) 97 96.7 03/14/18 09:35 Room Air 03/14/18 08:00 98.8 95 20 125/63 (83) 98.8 03/14/18 08:00 98 Intake and Output 03/14/18 03/15/18 19:00 07:00 Intake Total 1000 ml 420 ml Output Total 1500 ml 710 ml Balance -500 ml -290 ml Intake Oral 1000 ml 420 ml Output Urine Total 1500 ml 710 ml Laboratory Tests 03/15/18 04:00: Urine Color Pale yellow, Urine Appearance Slightly cloudy, Urine pH 6, Urine Specific [place] 1.010, Urine Protein 1+H, Urine Glucose (UA) Negative, Urine Ketones Negative, Urine Occult Blood 4+H, Urine Nitrite Negative, Urine Bilirubin Negative, Urine Urobilinogen Normal, Urine Leukocyte Esterase 3+H, Urine RBC 10-15H, Urine WBC 20-30H, Urine Squamous Epithelial Cells None, Urine Bacteria Few 03/15/18 06:25: White Blood Count [Pending], Red Blood Count [Pending], Hemoglobin [Pending], Hematocrit [Pending], Mean Corpuscular Volume [Pending], Mean Corpuscular Hemoglobin [Pending], Mean Corpuscular Hemoglobin Concent [Pending], Red Cell Distribution Width [Pending], Platelet Count [Pending], Mean Platelet Volume [ Pending], Neutrophils (%) (Auto) [Pending], Lymphocytes (%) (Auto) [Pending], Monocytes (%) (Auto) [Pending], Eosinophils (%) (Auto) [Pending], Basophils (%) (Auto) [Pending], Sodium Level [Pending], Potassium Level [Pending], Chloride Level [Pending], Carbon Dioxide Level [Pending], Blood Urea Nitrogen [Pending], Creatinine [Pending], Estimat Glomerular Filtration Rate [Pending], Glucose Level [Pending], Calcium Level [Pending], Phosphorus Level [Pending], Magnesium Level [Pending], Total Bilirubin [Pending], Aspartate Amino Transf (AST/SGOT) [ Pending], Alanine Aminotransferase (ALT/SGPT) [Pending], Alkaline Phosphatase [ Pending], Total Protein [Pending], Albumin [Pending], Globulin [Pending] Height (Feet): 5 Height (Inches): 6.00 Weight (Pounds): 152 Objective HEAD AND NECK: No JVP. No LAD. No thyromegaly. Extraocular movement intact. Pupils are reactive to light and accommodation. LUNGS: Clear to auscultation. CARDIAC: Regular rate and rhythm. S1 and S2. No murmur. No rub. ABDOMEN: Soft, nontender, and nondistended. EXTREMITIES: No edema. No clubbing. No cyanosis. NEUROLOGIC: Cranial nerves II through XII within normal limits. Upper and lower extremities are grossly intact. Cindy Jules MD Mar 15, 2018 07:41
[2018-03-15 08:00] VITALS: BP 136/55
[2018-03-15 08:05] LABS: ALANINE AMINOTRANSFERASE 18 U/L (12-78); ALBUMIN 2.6 G/DL (3.4-5.0); ALBUMIN/GLOBULIN RATIO 0.6 (1.0-2.7); ALKALINE PHOSPHATASE 68 U/L (46-116); ANION GAP 7 mmol/L (5-15); ASPARTATE AMINO TRANSFERASE 14 U/L (15-37); BILIRUBIN,TOTAL 0.5 MG/DL (0.2-1.0); BLOOD UREA NITROGEN 15 mg/dL (7-18); CALCIUM 8.5 MG/DL (8.5-10.1); CARBON DIOXIDE 28 MMOL/L (21-32); CHLORIDE 105 MMOL/L (98-107); CREATININE 1.4 MG/DL (0.55-1.30); SODIUM 140 MMOL/L (136-145)
[2018-03-15 08:17] LABS: PHOSPHORUS 2.1 MG/DL (2.5-4.9)
[2018-03-15] MEDS: Cefepime HCl 2 GM in D5W 110 ML IV SCH (09:26)
--- NOTE | 2018-03-15 10:21 | Consultation ---
History of Present Illness General Date patient seen: Mar 15, 2018 Time patient seen: 10:17 Chief Complaint: Male Urogenital Problems Referring physician: Florentin Reason for Consultation: right hydro, hematuria Present Illness HPI 67 yo male, smoker, with hematuria x 2. In ED had trouble urinating, 3 way benson placed. Since admission to floor, urine has been very clear. Patient in no pain. This is first episode of hematuria. Otherwise feeling well. Allergies: Coded Allergies: No Known Allergies (Unverified , 09/20/12) Medication History Scheduled Albuterol Sulfate* (Albuterol Sulfate Mdi*), 2 PUFF INH Q4H Azithromycin* (Zithromax*), 250 MG PO DAILY Patient History History Provided By: Patient Healthcare decision maker Resuscitation status Full Code Advanced Directive on File Review of Systems All Other Systems: negative except mentioned in HPI Physical Exam General Appearance: no apparent distress HEENT: atraumatic Neck: non-tender Respiratory/Chest: lungs clear Cardiovascular/Chest: normal rate, regular rhythm Abdomen: non tender, soft Genitourinary/Rectal: normal genital exam Extremities: non-tender Neurologic: alert, oriented x 3 Last 24 Hour Vital Signs Date Time Temp Pulse Resp B/P (MAP) Pulse Ox O2 Delivery O2 Flow Rate FiO2 03/15/18 09:31 Room Air 03/15/18 08:00 97.5 69 20 136/55 (82) 97 97.5 03/15/18 04:00 98.2 70 18 129/64 (85) 97 98.2 03/15/18 00:00 97.7 65 18 135/58 (83) 100 97.7 03/14/18 21:30 Room Air 03/14/18 20:00 97.9 75 19 130/62 (84) 98 97.9 03/14/18 20:00 Room Air 03/14/18 17:06 98 Room Air 21 03/14/18 17:04 84 20 Room Air 21 03/14/18 16:00 97.0 90 20 115/70 (85) 98 97.0 03/14/18 12:00 96.7 94 19 113/93 (100) 97 96.7 Intake and Output 03/14/18 03/15/18 19:00 07:00 Intake Total 1000 ml 420 ml Output Total 1500 ml 710 ml Balance -500 ml -290 ml Intake Oral 1000 ml 420 ml Output Urine Total 1500 ml 710 ml Laboratory Tests Test 03/15/18 04:00 03/15/18 06:25 Urine Color Pale yellow Urine Appearance Slightly cloudy Urine pH 6 (4.5-8.0) Urine Specific [place] 1.010 (1.005-1.035) Urine Protein 1+ (NEGATIVE) H Urine Glucose (UA) Negative (NEGATIVE) Urine Ketones Negative (NEGATIVE) Urine Occult Blood 4+ (NEGATIVE) H Urine Nitrite Negative (NEGATIVE) Urine Bilirubin Negative (NEGATIVE) Urine Urobilinogen Normal MG/DL (0.0-1.0) Urine Leukocyte Esterase 3+ (NEGATIVE) H Urine RBC 10-15 /HPF (0 - 0) H Urine WBC 20-30 /HPF (0 - 0) H Urine Squamous Epithelial Cells None /LPF (NONE/OCC) Urine Bacteria Few /HPF (NONE) White Blood Count 8.2 K/UL (4.8-10.8) Red Blood Count 4.46 M/UL (4.70-6.10) L Hemoglobin 13.0 G/DL (14.2-18.0) L Hematocrit 38.3 % (42.0-52.0) L Mean Corpuscular Volume 86 FL (80-99) Mean Corpuscular Hemoglobin 29.2 PG (27.0-31.0) Mean Corpuscular Hemoglobin Concent 34.0 G/DL (32.0-36.0) Red Cell Distribution Width 11.5 % (11.6-14.8) L Platelet Count 142 K/UL (150-450) L Mean Platelet Volume 7.1 FL (6.5-10.1) Neutrophils (%) (Auto) 79.8 % (45.0-75.0) H Lymphocytes (%) (Auto) 12.4 % (20.0-45.0) L Monocytes (%) (Auto) 6.6 % (1.0-10.0) Eosinophils (%) (Auto) 0.4 % (0.0-3.0) Basophils (%) (Auto) 0.8 % (0.0-2.0) Sodium Level 140 MMOL/L (136-145) Potassium Level 4.0 MMOL/L (3.5-5.1) Chloride Level 105 MMOL/L (98-107) Carbon Dioxide Level 28 MMOL/L (21-32) Anion Gap 7 mmol/L (5-15) Blood Urea Nitrogen 15 mg/dL (7-18) Creatinine 1.4 MG/DL (0.55-1.30) H Estimat Glomerular Filtration Rate > 60 mL/min (>60) Glucose Level 91 MG/DL (74-106) Calcium Level 8.5 MG/DL (8.5-10.1) Phosphorus Level 2.1 MG/DL (2.5-4.9) L Magnesium Level 1.8 MG/DL (1.8-2.4) Total Bilirubin 0.5 MG/DL (0.2-1.0) Aspartate Amino Transf (AST/SGOT) 14 U/L (15-37) L Alanine Aminotransferase (ALT/SGPT) 18 U/L (12-78) Alkaline Phosphatase 68 U/L (46-116) Total Protein 6.6 G/DL (6.4-8.2) Albumin 2.6 G/DL (3.4-5.0) L Globulin 4.0 g/dL Albumin/Globulin Ratio 0.6 (1.0-2.7) L Height (Feet): 5 Height (Inches): 6.00 Weight (Pounds): 152 Medications Current Medications Medications (Trade) Dose Ordered Sig/Avis Route PRN Reason Start Time Stop Time Status Last Admin Dose Admin Acetaminophen (Tylenol) 650 mg Q4H PRN ORAL fever 03/13/18 22:15 04/12/18 22:14 Albuterol/ Ipratropium (Albuterol/ Ipratropium) 3 ml Q4H PRN HHN Shortness of Breath 03/13/18 22:15 03/18/18 22:14 Cefepime HCl 2 gm/ Dextrose 110 ml @ 220 mls/hr DAILY IV 03/16/18 09:00 03/21/18 08:59 Morphine Sulfate (Morphine Sulfate) 2 mg EVERY 4 HOURS PRN IVP Moderate Pain (Pain Scale 4-6) 03/13/18 22:15 03/20/18 22:14 Ondansetron HCl (Zofran) 4 mg Q6H PRN IVP Nausea & Vomiting 03/13/18 22:15 04/12/18 22:14 Phenazopyridine HCl (Pyridium) 100 mg DAILY PRN ORAL dysuria 03/13/18 22:15 04/12/18 22:14 Polyethylene Glycol (Miralax) 17 gm DAILYPRN PRN ORAL Constipation 03/13/18 22:15 04/12/18 22:14 Temazepam (Restoril) 15 mg HSPRN PRN ORAL Insomnia 03/13/18 22:15 03/20/18 22:[address]: right hydro down to distal ureter with high density material within 1 cm stretch of ureter. Assessment/Plan Status: stable Assessment/Plan 67 yo male with hematuria, now resolved, and right hydro. High risk for ureteral tumor. Needs ureteroscopy with biopsy and likely laser fulguration. Hematuria has resolved. Given concern for retention, would recommend leaving benson in for now. H/H stable and patient feels fine. Unfortunately, ureteroscopic biopsy tools and appropriate laser not available at [facility]. Given patient is in stable condition, recommend discharge home with benson in place and follow up as outpatient for ureteroscopy, biopsy, laser fulguration, and stent placement. 1. home with benson to leg bag 2. f/u in office within 1 week to schedule elective intervention on right ureter. Tre Wong M.D. Mar 15, 2018 10:21
[2018-03-15 12:00] VITALS: BP 118/62
--- NOTE | 2018-03-15 14:25 | Pulmonology Progress Note ---
Assessment/Plan Problems: (1) Lesion of right [place] ureter (2) Hydronephrosis of right kidney (3) Gross hematuria Assessment & Plan: resolved (4) UTI (urinary tract infection) (5) History of asthma Assessment/Plan all reviewed urology recommending discharge and Uroscopy as outpatient symptomatic treatment Subjective ROS Limited/Unobtainable: No Interval Events: urine cleared up Allergies: Coded Allergies: No Known Allergies (Unverified , 09/20/12) Objective Last 24 Hour Vital Signs Date Time Temp Pulse Resp B/P (MAP) Pulse Ox O2 Delivery O2 Flow Rate FiO2 03/15/18 12:00 97.8 63 19 118/62 (80) 98 97.8 03/15/18 09:31 Room Air 03/15/18 08:00 97.5 69 20 136/55 (82) 97 97.5 03/15/18 04:00 98.2 70 18 129/64 (85) 97 98.2 03/15/18 00:00 97.7 65 18 135/58 (83) 100 97.7 03/14/18 21:30 Room Air 03/14/18 20:00 97.9 75 19 130/62 (84) 98 97.9 03/14/18 20:00 Room Air 03/14/18 17:06 98 Room Air 21 03/14/18 17:04 84 20 Room Air 21 03/14/18 16:00 97.0 90 20 115/70 (85) 98 97.0 Intake and Output 03/14/18 03/15/18 19:00 07:00 Intake Total 1000 ml 420 ml Output Total 1500 ml 710 ml Balance -500 ml -290 ml Intake Oral 1000 ml 420 ml Output Urine Total 1500 ml 710 ml General Appearance: WD/WN HEENT: normocephalic, atraumatic Respiratory/Chest: chest wall non-tender, lungs clear Cardiovascular: normal peripheral pulses, normal rate Abdomen: soft, non tender, non distended Genitourinary: normal external genitalia Extremities: no clubbing Skin: no lesions Laboratory Tests 03/15/18 04:00: Urine Color Pale yellow, Urine Appearance Slightly cloudy, Urine pH 6, Urine Specific [place] 1.010, Urine Protein 1+H, Urine Glucose (UA) Negative, Urine Ketones Negative, Urine Occult Blood 4+H, Urine Nitrite Negative, Urine Bilirubin Negative, Urine Urobilinogen Normal, Urine Leukocyte Esterase 3+H, Urine RBC 10-15H, Urine WBC 20-30H, Urine Squamous Epithelial Cells None, Urine Bacteria Few 03/15/18 06:25: White Blood Count 8.2, Red Blood Count 4.46L, Hemoglobin 13.0L, Hematocrit 38.3L , Mean Corpuscular Volume 86, Mean Corpuscular Hemoglobin 29.2, Mean Corpuscular Hemoglobin Concent 34.0, Red Cell Distribution Width 11.5L, Platelet Count 142L, Mean Platelet Volume 7.1, Neutrophils (%) (Auto) 79.8H, Lymphocytes (%) (Auto) 12.4L, Monocytes (%) (Auto) 6.6, Eosinophils (%) (Auto) 0.4, Basophils (%) (Auto) 0.8, Sodium Level 140, Potassium Level 4.0, Chloride Level 105, Carbon Dioxide Level 28, Anion Gap 7, Blood Urea Nitrogen 15, Creatinine 1.4H, Estimat Glomerular Filtration Rate > 60, Glucose Level 91, Calcium Level 8.5, Phosphorus Level 2.1L, Magnesium Level 1.8, Total Bilirubin 0.5, Aspartate Amino Transf (AST/SGOT) 14L, Alanine Aminotransferase (ALT/SGPT) 18, Alkaline Phosphatase 68, Total Protein 6.6, Albumin 2.6L, Globulin 4.0, Albumin/Globulin Ratio 0.6L Current Medications Medications (Trade) Dose Ordered Sig/Avis Route PRN Reason Start Time Stop Time Status Last Admin Dose Admin Acetaminophen (Tylenol) 650 mg Q4H PRN ORAL fever 03/13/18 22:15 04/12/18 22:14 Albuterol/ Ipratropium (Albuterol/ Ipratropium) 3 ml Q4H PRN HHN Shortness of Breath 03/13/18 22:15 03/18/18 22:14 Cefepime HCl 2 gm/ Dextrose 110 ml @ 220 mls/hr DAILY IV 03/16/18 09:00 03/21/18 08:59 Morphine Sulfate (Morphine Sulfate) 2 mg EVERY 4 HOURS PRN IVP Moderate Pain (Pain Scale 4-6) 03/13/18 22:15 03/20/18 22:14 Ondansetron HCl (Zofran) 4 mg Q6H PRN IVP Nausea & Vomiting 03/13/18 22:15 04/12/18 22:14 Phenazopyridine HCl (Pyridium) 100 mg DAILY PRN ORAL dysuria 03/13/18 22:15 04/12/18 22:14 Polyethylene Glycol (Miralax) 17 gm DAILYPRN PRN ORAL Constipation 03/13/18 22:15 04/12/18 22:14 Temazepam (Restoril) 15 mg HSPRN PRN ORAL Insomnia 03/13/18 22:15 03/20/18 22:14 Matilde Crain MD Mar 15, 2018 14:25
--- NOTE | 2018-03-15 15:42 | General Progress Note ---
Assessment/Plan Problem List: (1) Urinary retention ICD Codes: R33.9 - Retention of urine, unspecified SNOMED: 544103263 (2) UTI (urinary tract infection) ICD Codes: N39.0 - Urinary tract infection, site not specified SNOMED: 80576358 Qualifiers: (3) Gross hematuria ICD Codes: R31.0 - Gross hematuria SNOMED: 363681954 (4) Hydronephrosis of right kidney ICD Codes: N13.30 - Unspecified hydronephrosis SNOMED: 07140186 (5) Lesion of right [place] ureter ICD Codes: N28.89 - Other specified disorders of kidney and ureter SNOMED: 174870446 (6) Hematuria ICD Codes: R31.9 - Hematuria, unspecified SNOMED: 52191475 (7) History of asthma ICD Codes: Z87.09 - Personal history of other diseases of the respiratory system SNOMED: 975429856 Status: unchanged Assessment/Plan abx per id cbc bmp am Subjective Constitutional: Reports: weakness Allergies: Coded Allergies: No Known Allergies (Unverified , 09/20/12) All Systems: reviewed and negative except above Subjective calm in bed Objective Last 24 Hour Vital Signs Date Time Temp Pulse Resp B/P (MAP) Pulse Ox O2 Delivery O2 Flow Rate FiO2 03/15/18 12:00 97.8 63 19 118/62 (80) 98 97.8 03/15/18 09:31 Room Air 03/15/18 08:00 97.5 69 20 136/55 (82) 97 97.5 03/15/18 04:00 98.2 70 18 129/64 (85) 97 98.2 03/15/18 00:00 97.7 65 18 135/58 (83) 100 97.7 03/14/18 21:30 Room Air 03/14/18 20:00 97.9 75 19 130/62 (84) 98 97.9 03/14/18 20:00 Room Air 03/14/18 17:06 98 Room Air 21 03/14/18 17:04 84 20 Room Air 21 03/14/18 16:00 97.0 90 20 115/70 (85) 98 97.0 Intake and Output 03/14/18 03/15/18 19:00 07:00 Intake Total 1000 ml 420 ml Output Total 1500 ml 710 ml Balance -500 ml -290 ml Intake Oral 1000 ml 420 ml Output Urine Total 1500 ml 710 ml Laboratory Tests 03/15/18 04:00: Urine Color Pale yellow, Urine Appearance Slightly cloudy, Urine pH 6, Urine Specific [place] 1.010, Urine Protein 1+H, Urine Glucose (UA) Negative, Urine Ketones Negative, Urine Occult Blood 4+H, Urine Nitrite Negative, Urine Bilirubin Negative, Urine Urobilinogen Normal, Urine Leukocyte Esterase 3+H, Urine RBC 10-15H, Urine WBC 20-30H, Urine Squamous Epithelial Cells None, Urine Bacteria Few 03/15/18 06:25: White Blood Count 8.2, Red Blood Count 4.46L, Hemoglobin 13.0L, Hematocrit 38.3L , Mean Corpuscular Volume 86, Mean Corpuscular Hemoglobin 29.2, Mean Corpuscular Hemoglobin Concent 34.0, Red Cell Distribution Width 11.5L, Platelet Count 142L, Mean Platelet Volume 7.1, Neutrophils (%) (Auto) 79.8H, Lymphocytes (%) (Auto) 12.4L, Monocytes (%) (Auto) 6.6, Eosinophils (%) (Auto) 0.4, Basophils (%) (Auto) 0.8, Sodium Level 140, Potassium Level 4.0, Chloride Level 105, Carbon Dioxide Level 28, Anion Gap 7, Blood Urea Nitrogen 15, Creatinine 1.4H, Estimat Glomerular Filtration Rate > 60, Glucose Level 91, Calcium Level 8.5, Phosphorus Level 2.1L, Magnesium Level 1.8, Total Bilirubin 0.5, Aspartate Amino Transf (AST/SGOT) 14L, Alanine Aminotransferase (ALT/SGPT) 18, Alkaline Phosphatase 68, Total Protein 6.6, Albumin 2.6L, Globulin 4.0, Albumin/Globulin Ratio 0.6L Height (Feet): 5 Height (Inches): 6.00 Weight (Pounds): 152 General Appearance: alert EENT: normal ENT inspection Neck: normal alignment Cardiovascular: normal peripheral pulses, normal rate, regular rhythm Respiratory/Chest: chest wall non-tender, lungs clear, normal breath sounds Abdomen: normal bowel sounds, non tender, soft Extremities: normal inspection Edema: no edema noted Arm (L), no edema noted Arm (R), no edema noted Leg (L), no edema noted Leg (R), no edema noted Pedal (L), no edema noted Pedal (R), no edema noted Generalized Neurologic: motor weakness Skin: normal pigmentation, warm/dry Mich Lerma DO Mar 15, 2018 15:42
[2018-03-15 16:00] VITALS: BP 136/65
--- NOTE | 2018-03-15 17:42 | Infectious Diseases Prog Note ---
Assessment/Plan Assessment/Plan Abx: IV Vanco 03/14- Cefepime 03/14- Ceftriaxone x1 03/13 Assessment: Hematuria Severe R side hydronephrosis/hydroureter- r/o malignancy -r/o UTI -CT abd/p: Limited exam without intravenous and oral contrast. Within these limitations: Lesion/focal thickening in the right distal ureter with associated high attenuation components which may represent hemorrhagic products with resultant severe right-sided hydronephrosis and moderate right-sided ureteral dilatation. A ureteral malignancy cannot be excluded. Superimposed infection can also not be excluded. Correlation with urinalysis and urine cytology recommended. Urology consult recommended.* Punctate nonobstructing left renal stone. No evidence of obstructive uropathy on the left.* Large heterogeneous prostate. Dilatation of a segment of the prostatic urethra. Mild leukocytosis; resolved -afebrile -u/a wbc 2-4, nit +, leuk +3; repeat u/a wbc 20-30, nit neg, leuk +3; ucx p Probable UTI tobacco abuse Plan: -On empiric Cefepime #2/ pending urine culture; patient wants to go home; ok to discharge on Keflex 500mg tid -f/u final urine culture -03/14 SP IV Vancomycin #1 -urine cytology -Uro f/u -f/u cx -Monitor CBC/CMP, temperatures Thank you for this consultation. Will continue to follow along with you. Discussed with RN. Subjective Allergies: Coded Allergies: No Known Allergies (Unverified , 09/20/12) Subjective afebrile at RA leukocytosis resolved Objective Vital Signs Last 24 Hour Vital Signs Date Time Temp Pulse Resp B/P (MAP) Pulse Ox O2 Delivery O2 Flow Rate FiO2 03/15/18 16:00 97.8 68 19 136/65 (88) 97 97.8 03/15/18 12:00 97.8 63 19 118/62 (80) 98 97.8 03/15/18 09:31 Room Air 03/15/18 08:00 97.5 69 20 136/55 (82) 97 97.5 03/15/18 04:00 98.2 70 18 129/64 (85) 97 98.2 03/15/18 00:00 97.7 65 18 135/58 (83) 100 97.7 03/14/18 21:30 Room Air 03/14/18 20:00 97.9 75 19 130/62 (84) 98 97.9 03/14/18 20:00 Room Air Height (Feet): 5 Height (Inches): 6.00 Weight (Pounds): 152 Objective HEAD AND NECK: No JVP. No LAD. No thyromegaly. Extraocular movement intact. Pupils are reactive to light and accommodation. LUNGS: Clear to auscultation. CARDIAC: Regular rate and rhythm. S1 and S2. No murmur. No rub. ABDOMEN: Soft, nontender, and nondistended. EXTREMITIES: No edema. No clubbing. No cyanosis. NEUROLOGIC: Cranial nerves II through XII within normal limits. Upper and lower extremities are grossly intact Laboratory Tests Test 03/15/18 04:00 03/15/18 06:25 Urine Color Pale yellow Urine Appearance Slightly cloudy Urine pH 6 (4.5-8.0) Urine Specific [place] 1.010 (1.005-1.035) Urine Protein 1+ (NEGATIVE) H Urine Glucose (UA) Negative (NEGATIVE) Urine Ketones Negative (NEGATIVE) Urine Occult Blood 4+ (NEGATIVE) H Urine Nitrite Negative (NEGATIVE) Urine Bilirubin Negative (NEGATIVE) Urine Urobilinogen Normal MG/DL (0.0-1.0) Urine Leukocyte Esterase 3+ (NEGATIVE) H Urine RBC 10-15 /HPF (0 - 0) H Urine WBC 20-30 /HPF (0 - 0) H Urine Squamous Epithelial Cells None /LPF (NONE/OCC) Urine Bacteria Few /HPF (NONE) White Blood Count 8.2 K/UL (4.8-10.8) Red Blood Count 4.46 M/UL (4.70-6.10) L Hemoglobin 13.0 G/DL (14.2-18.0) L Hematocrit 38.3 % (42.0-52.0) L Mean Corpuscular Volume 86 FL (80-99) Mean Corpuscular Hemoglobin 29.2 PG (27.0-31.0) Mean Corpuscular Hemoglobin Concent 34.0 G/DL (32.0-36.0) Red Cell Distribution Width 11.5 % (11.6-14.8) L Platelet Count 142 K/UL (150-450) L Mean Platelet Volume 7.1 FL (6.5-10.1) Neutrophils (%) (Auto) 79.8 % (45.0-75.0) H Lymphocytes (%) (Auto) 12.4 % (20.0-45.0) L Monocytes (%) (Auto) 6.6 % (1.0-10.0) Eosinophils (%) (Auto) 0.4 % (0.0-3.0) Basophils (%) (Auto) 0.8 % (0.0-2.0) Sodium Level 140 MMOL/L (136-145) Potassium Level 4.0 MMOL/L (3.5-5.1) Chloride Level 105 MMOL/L (98-107) Carbon Dioxide Level 28 MMOL/L (21-32) Anion Gap 7 mmol/L (5-15) Blood Urea Nitrogen 15 mg/dL (7-18) Creatinine 1.4 MG/DL (0.55-1.30) H Estimat Glomerular Filtration Rate > 60 mL/min (>60) Glucose Level 91 MG/DL (74-106) Calcium Level 8.5 MG/DL (8.5-10.1) Phosphorus Level 2.1 MG/DL (2.5-4.9) L Magnesium Level 1.8 MG/DL (1.8-2.4) Total Bilirubin 0.5 MG/DL (0.2-1.0) Aspartate Amino Transf (AST/SGOT) 14 U/L (15-37) L Alanine Aminotransferase (ALT/SGPT) 18 U/L (12-78) Alkaline Phosphatase 68 U/L (46-116) Total Protein 6.6 G/DL (6.4-8.2) Albumin 2.6 G/DL (3.4-5.0) L Globulin 4.0 g/dL Albumin/Globulin Ratio 0.6 (1.0-2.7) L Current Medications Medications (Trade) Dose Ordered Sig/Avis Route PRN Reason Start Time Stop Time Status Last Admin Dose Admin Acetaminophen (Tylenol) 650 mg Q4H PRN ORAL fever 03/13/18 22:15 04/12/18 22:14 Albuterol/ Ipratropium (Albuterol/ Ipratropium) 3 ml Q4H PRN HHN Shortness of Breath 03/13/18 22:15 03/18/18 22:14 Cefepime HCl 2 gm/ Dextrose 110 ml @ 220 mls/hr DAILY IV 03/16/18 09:00 03/21/18 08:59 Morphine Sulfate (Morphine Sulfate) 2 mg EVERY 4 HOURS PRN IVP Moderate Pain (Pain Scale 4-6) 03/13/18 22:15 03/20/18 22:14 Ondansetron HCl (Zofran) 4 mg Q6H PRN IVP Nausea & Vomiting 03/13/18 22:15 04/12/18 22:14 Phenazopyridine HCl (Pyridium) 100 mg DAILY PRN ORAL dysuria 03/13/18 22:15 04/12/18 22:14 Polyethylene Glycol (Miralax) 17 gm DAILYPRN PRN ORAL Constipation 03/13/18 22:15 04/12/18 22:14 Temazepam (Restoril) 15 mg HSPRN PRN ORAL Insomnia 03/13/18 22:15 03/20/18 22:14 Adelina Byrd M.D. Mar 15, 2018 17:42
[2018-03-15] MEDS ORDERED: CEPHALEXIN500 MG ORAL (20:44)
[2018-03-16] MEDS ORDERED: Cefepime HCl 2 GM in D5W 110 ML IV SCH (09:00)
--- NOTE | 2018-03-16 10:05 | Discharge Summary ---
Discharge Summary Discharge Summary _ DATE OF ADMISSION: 03/13/2018 DATE OF DISCHARGE: 03/15/2018 REASON FOR ADMISSION: 67 years old male with history of asthma, tobacco abuse, presented to emergency department with complaints of blood in urine and inability to void in 5-6 hours after he noted gross hematuria and clots. Vital signs were stable. 3-way Neal was placed in emergency department. Small clot came out . Neal catheter was readjusted due to difficulty irrigating initially. After readjusting, Neal was draining well, no gross hematuria. CT of the abdomen and pelvis revealed right distal ureter lesion with associated high attenuation, probably representing hemorrhagic products with resultant severe right-sided hydronephrosis and moderate right-sided ureteral dilatation. The ureteral malignancy and superimposed infection could not be excluded. Large heterogeneous prostate. Punctuate nonobstructing left renal stone. Laboratory workup revealed no leukocytosis, stable hemoglobin and hematocrit. Urinalysis with evidence of pyuria. Stable renal parameters and electrolytes. Patient admitted with diagnosis of gross hematuria ,urinary retention,urinary tract infection, right hydronephrosis, lesion of right [place] ureter, rule out ureteral tumor. CONSULTANTS: pulmonary Dr. Crain ID specialist Dr. Celeste glue sprayer Dr. Jules urologist [facility] COURSE: Patient admitted. Patient started on IV fluids. Hemoglobin and hematocrit were closely monitored. Urology evaluation was requested. Pain management was provided , pain was addressed and controlled. Neal catheter care provided with irrigation as needed. No further clots. Urologist seen and evaluated patient. Hematuria resolved at that time. Patient had a high risk for ureteral tumor. According to urologist, patient needs ureteroscopy with biopsy , likely laser fulguration. Given concern for retention he recommended confine Neal catheter. Patient felt better, hemoglobin and hematocrit remained stable, and pain resolved. Unfortunately, ureteroscopic biopsy tools and appropriate laser were not available at [facility]. Given that the patient was in stable condition, the urologist recommended discharge home with Neal catheter to leg bag and follow-up as outpatient with urologist for ureteroscopy with biopsy, laser fulguration and stent placement in one week to schedule elective intervention. Environmental Monitoring Specialist closely followed. Renal parameters and electrolytes were closely monitored. Electrolytes were corrected as needed. Nephrotoxins were avoided. Creatinine remained stable. Infectious disease specialist closely followed. Per infectious disease doctor, patient probably had urinary tract infection. Urine culture negative, blood culture negative. Infectious disease doctor recommended continue oral antibiotics at home to complete the course. Deck Scaler closely followed patient. Patient with history of asthma and current smoker. Supplemental oxygen and pulmonary toilet were on board as needed. No signs of respiratory distress or evidence of asthma exacerbation. Patient was counseled on smoking cessation. Gross hematuria resolved. Hemoglobin 13, hematocrit 38.3. Stable renal parameters. Patient was stable for discharge home on oral antibiotics to complete the course with Neal catheter to leg bag . Follow-up with urologist in one week to schedule elective urological procedure. FINAL DIAGNOSES: Gross hematuria Urinary retention Severe right-sided hydronephrosis/hydroureter Lesion of right knee kidney uric ureter Rule out malignancy Probably UTI Tobacco abuse History of asthma DISCHARGE MEDICATIONS: See Medication Reconciliation list. DISCHARGE INSTRUCTIONS: Patient was discharged home with home health services. Follow up as outpatient with urologist in one week to schedule elective urological procedure on right ureter. I have been assigned to dictate discharge summary for this account. I was not involved in the patient's management. Fadumo Ortega NP Mar 16, 2018 10:05
== END 2018-03-15 21:05 | disposition home health service (06) | DRG 468 ==
LOC: EMR 20:30 → 4W 21:08 → MERGE 21:08 → EDBEDREQ 21:59
DX: N28.89 Other specified disorders of kidney and ureter (principal); F17.200 Nicotine dependence, unspecified, uncomplicated; N13.30 Unspecified hydronephrosis; N39.0 Urinary tract infection, site not specified; R33.9 Retention of urine, unspecified; J45.909 Unspecified asthma, uncomplicated
CPT/HCPCS: 36415; 74176; 80053; 81003; 82962; 83690; 83735; 84100; 85007; 85025; 87040; 87086; 88104; 93970; 94664; 94760

== ENCOUNTER 2018-04-02 23:16 | Emergency (ER) | payer MEDICARE, OTHER ==
[~2018-04-02] VITALS: Ht 170.2 cm; Wt 72.6 kg
[~2018-04-02 23:16] MED LIST changes: +CEPHALEXIN500 MG ORAL
[2018-04-03 00:13] LABS: APPEARANCE,URINE VERY CLOUDY; BILIRUBIN, URINE NEGATIVE (NEGATIVE); GLUCOSE, URINE (UA) NEGATIVE (NEGATIVE); KETONES,URINE NEGATIVE (NEGATIVE); LEUKOCYTE ESTERASE ,URINE 3+ (NEGATIVE); NITRITE,URINE POSITIVE (NEGATIVE); PH,URINE 6.5 (4.5-8.0); PROTEIN,URINE 3+ (NEGATIVE); UROBILINOGEN,URINE 4 MG/DL (0.0-1.0)
[2018-04-03 00:14] LABS: COLOR,URINE BROWN
[2018-04-03] MEDS ORDERED: CEPHALEXIN500 MG ORAL (00:56)
--- NOTE | 2018-04-03 00:57 | Emergency Room Report ---
History of Present Illness General Chief Complaint: Male Urogenital Problems Source: Patient Present Illness HPI Is a 68-year-old male who was recently admitted for gross hematuria. He has a 3 -way Neal placed. He scheduled to see urology as outpatient for cystoscopy. He was doing well until today when he started noticing blood in his urine. He has no obstruction. No pain. His been 3 weeks now since he has the Neal. Denies any other complaint. Allergies: Coded Allergies: No Known Allergies (Unverified , 09/20/12) Patient History Past Medical History: see triage record, old chart reviewed Pertinent Family History: none Social History: Denies: smoking Immunizations: other Reviewed Nursing Documentation: PMH: Agreed; PSxH: Agreed Nursing Documentation-PMH Hx Gastrointestinal Problems: Yes - URINARY PROBLEM Review of Systems Eye: Denies: eye pain, blurred vision ENT: Denies: ear pain, nose congestion, throat swelling Respiratory: Denies: cough, shortness of breath Cardiovascular: Denies: chest pain, palpitations Gastrointestinal: Denies: abdominal pain, diarrhea, nausea, vomiting Genitourinary: Reports: hematuria Musculoskeletal: Denies: back pain, joint pain Skin: Denies: rash Neurological: Denies: headache, numbness Endocrine: Denies: increased thirst, increased urine Hematologic/Lymphatic: Denies: easy bruising All Other Systems: negative except mentioned in HPI Physical Exam Vital Signs Date Time Temp Pulse Resp B/P (MAP) Pulse Ox O2 Delivery O2 Flow Rate FiO2 04/02/18 23:22 98.3 79 18 141/64 98 Room Air 98.2 vitals normal Sp02 EP Interpretation: reviewed, normal General Appearance: well appearing, no apparent distress, alert Head: normocephalic, atraumatic Eyes: bilateral eye PERRL, bilateral eye EOMI ENT: hearing grossly normal, normal pharynx Neck: full range of motion, supple, no meningismus Respiratory: chest non-tender, lungs clear, normal breath sounds Cardiovascular #1: regular rate, rhythm, no murmur Gastrointestinal: normal bowel sounds, non tender, no mass, no organomegaly, no bruit, non-distended Genitourinary: other - hematuria. no clots Musculoskeletal: back normal, gait/station normal, normal range of motion Neurologic: alert, oriented x3 Psychiatric: mood/affect normal Skin: warm/dry Medical Decision Making Diagnostic Impression: Primary Impression: Hematuria Qualified Codes: R31.9 - Hematuria, unspecified Additional Impression: UTI (urinary tract infection) Qualified Codes: N30.01 - Acute cystitis with hematuria ER Course Patient with hematuria. This most likely secondary to urinary tract infection. It cleared up with irrigation. No evidence of obstruction. Last Vital Signs Date Time Temp Pulse Resp B/P (MAP) Pulse Ox O2 Delivery O2 Flow Rate FiO2 04/02/18 23:22 98.3 79 18 141/64 98 Room Air 98.2 Status: improved Disposition: HOME, SELF-CARE Condition: Stable Scripts Cephalexin* (KEFLEX*) 500 Mg Capsule 500 MG ORAL TID, #21 CAP Prov: LUKASZ VARELA M.D. 04/03/18 Patient Instructions: Urinary Tract Infection Additional Instructions: follow-up with your doctor as scheduled on . Return if worse. LUKASZ VARELA M.D. Apr 03, 2018 00:57
[2018-04-03] MEDS ORDERED: Cephalexin 500mg cap ORAL ONE (01:00)
[2018-04-03 01:02] VITALS: BP 145/72
[2018-04-03 01:08] VITALS: BP 145/72
== END 2018-04-03 02:30 | disposition home or self-care (01) ==
LOC: EMR 04-03 02:11
DX: N30.01 Acute cystitis with hematuria (principal); B96.5 Pseudomonas (aeruginosa) (mallei) (pseudomallei) as the cause of diseases classified elsewhere; B96.89 Other specified bacterial agents as the cause of diseases classified elsewhere
CPT/HCPCS: 81001; 87086; 87181; 99283

== ENCOUNTER → 2018-09-15 | Outpatient (CLI) | payer MEDICARE, OTHER ==
[2018-09-15 12:39] LABS: APPEARANCE,URINE CLOUDY; BILIRUBIN, URINE NEGATIVE (NEGATIVE); COLOR,URINE PALE YELLOW; GLUCOSE, URINE (UA) NEGATIVE (NEGATIVE); KETONES,URINE NEGATIVE (NEGATIVE); LEUKOCYTE ESTERASE ,URINE 3+ (NEGATIVE); NITRITE,URINE NEGATIVE (NEGATIVE); PH,URINE 6.5 (4.5-8.0); PROTEIN,URINE 2+ (NEGATIVE); UROBILINOGEN,URINE 1 MG/DL (0.0-1.0)
[2018-09-15 12:41] LABS: BASOPHILS % (AUTO) 0.9 % (0.0-2.0); EOSINOPHILS % (AUTO) 1.4 % (0.0-3.0); HEMATOCRIT 41.5 % (42.0-52.0); HEMOGLOBIN 13.8 G/DL (14.2-18.0); LYMPHOCYTES % (AUTO) 27.7 % (20.0-45.0); MEAN CORPUSCULAR VOLUME 83 FL (80-99); MONOCYTES % (AUTO) 7.2 % (1.0-10.0); NEUTROPHILS % (AUTO) 62.7 % (45.0-75.0); PLATELET COUNT 275 K/UL (150-450); RED CELL DISTRIBUTION WIDTH 12.7 % (11.6-14.8); WHITE BLOOD COUNT 6.9 K/UL (4.8-10.8)
[2018-09-15 13:11] LABS: ALANINE AMINOTRANSFERASE 14 U/L (12-78); ALBUMIN 3.1 G/DL (3.4-5.0); ALBUMIN/GLOBULIN RATIO 0.6 (1.0-2.7); ALKALINE PHOSPHATASE 93 U/L (46-116); ANION GAP 7 mmol/L (5-15); ASPARTATE AMINO TRANSFERASE 14 U/L (15-37); BILIRUBIN,TOTAL 0.2 MG/DL (0.2-1.0); BLOOD UREA NITROGEN 13 mg/dL (7-18); CALCIUM 8.7 MG/DL (8.5-10.1); CARBON DIOXIDE 29 MMOL/L (21-32); CHLORIDE 103 MMOL/L (98-107); CHOLESTEROL 162 MG/DL (< 200); CREATININE 1.5 MG/DL (0.55-1.30); HDL CHOLESTEROL 54 MG/DL (40-60); SODIUM 139 MMOL/L (136-145); TRIGLYCERIDES 79 MG/DL (30-150)
--- NOTE | 2018-09-15 14:46 | Diagnostic Imaging Report ---
Indication: Cough Technique: 2 views of the chest Comparison: 09/20/2012 Findings: Bands of atelectasis or scarring are seen in the mid to lower lingula on the left. The lungs and pleural spaces are otherwise clear. Heart size is normal. The aorta is tortuous and calcified. Impression: Lingular subsegmental atelectasis versus scarring. No definite acute process otherwise
== END | disposition home or self-care (01) ==
LOC: LAB 11:58
DX: N13.8 Other obstructive and reflux uropathy (principal); R05 Cough
CPT/HCPCS: 36415; 71046; 80053; 80061; 81003; 84153; 84443; 85025; 86705; 86709; 86803; 87086; 87340; 93005